=== PATIENT | female | born 1940 | race Asian ===

== ENCOUNTER 2016-11-24 10:15 | Emergency (ER) | payer OTHER, MEDICARE ==
[~2016-11-24] VITALS: Ht 142.2 cm; Wt 44.5 kg
[~2016-11-24 10:15] MED LIST: AMBIEN5 MG PO; ATIVAN0.5 MG PO; CALCIUM 600 +1 EAC5 PO; CALCIUM CARB1 TABLET PO; CARBIDOPA/LEVO1 EACH PO; CELECOXIB200 MG PO; CENTRUM SILVER1 EAC3 PO; CIPRO500 MG PO; COLACE100 MG PO; CYANOCOBALAM1000 MCG PO; DOCUSATE SODIU100 MG PO; FAMOTIDINE20 MG PO; FLEET ENEMA-AD118 ML PR; HYDROCODON-ACE1 EAC7 PO; KLOR-CON SPRIN10 MEQ PO; LEVOFLOXACIN500 MG PO; LISINOPRIL5 MG PO; LORCET PLUS 7.1 EACH PO; LOVENOX40 MG/0.4 SC; METFORMIN HCL500 MG PO; METRONIDAZOLE500 MG PO; MILK OF MAGNESI10 ML PO; MIRALAX17 GM PO; MIRALAX255 GM PO; ONDANSETRON ODT4 MG PO; PRAVASTATIN SOD20 MG PO; SENOKOT,SENN1 TABLET PO; THERAGRAN1 TABLET PO; TYLENOL EXTRA500 MG PO; ULTRAM50 MG PO; VITAMIN A8000 UNIT PO; VITAMIN D1000 UNIT PO
[2016-11-24 11:27] LABS: EOSINOPHIL (%) 1.3 % (0-5); EOSINOPHIL COUNT 0.1 K/uL (0-0.3); HEMATOCRIT 37.8 % (36.0-46.0); IMMATURE GRANULOCYTE (%) 0.3 % (0.0-0.7); IMMATURE GRANULOCYTE COUNT 0.2 K/uL; LYMPHOCYTE COUNT 1.7 K/uL (1.0-2.8); MCH 32.8 PG (29.0-34.0); MCHC 35.2 G/DL (30.0-36.0); MCV 93.1 FL (83-99); MEAN PLAT.VOLUME 8.1 uM^3 (9.5-12.4); MONOCYTE COUNT 0.4 K/uL (0-0.8); NEUTROPHIL (%) 71.1 % (45-76); NEUTROPHIL COUNT 5.5 K/uL (1.8-6.4); PLATELET COUNT 262 K/uL (156-360); RBC DIS.WIDTH-CV 12.3 % (11.8-14.6); RBC DIS.WIDTH-SD 40.9 % (39-53); RED BLOOD COUNT 4.06 M/uL (3.80-5.20); WHITE BLOOD COUNT 7.7 K/uL (4.1-10.2)
[2016-11-24 11:36] LABS: PROTHROMBIN TIME 10.3 (9.2-11.2)
[2016-11-24 11:38] LABS: CHLORIDE 97 mEq/L (99-109); POTASSIUM 5.2 mEq/L (3.7-5.4); SODIUM 130 mEq/L (136-147)
[2016-11-24 11:40] LABS: GLUCOSE 115 mg/dL (70-99)
[2016-11-24 11:41] LABS: ANION GAP 12 MEQ/L (2-14)
[2016-11-24 11:42] LABS: TOTAL BILIRUBIN 0.3 mg/dL (0.0-1.0)
[2016-11-24 11:43] LABS: ALKALINE PHOSPHATASE 59 IU/L (3-129)
[2016-11-24 11:44] LABS: GFR ESTIMATE (CALCULATED) > 59 mL/min/
[2016-11-24 11:45] LABS: UREA NITROGEN (BUN) 27 mg/dL (9-23)
[2016-11-24 11:54] LABS: ADD MIUA? YES; BILIRUBIN SMALL; BLOOD NEGATIVE; COLOR YELLOW ((YELLOW)); GLUCOSE (STRIP) NEGATIVE; KETONES TRACE; LEUKOCYTES LARGE; NITRITE NEGATIVE; PH, URINE 5.5 (5-8); PROTEIN (STRIP) TRACE; SPECIFIC GRAVITY 1.022 (1.000-1.030); UROBILINOGEN 0.2 MG/DL (0.2-1.0)
[2016-11-24 12:55] LABS: EPITHELIAL CELLS NONE SEEN /HPF; MUCUS NONE SEEN /LPF; RED BLOOD CELLS 0-5 /HPF (0-5); UCUL ADDED? YES; WHITE BLOOD CELLS TNTC /HPF (0-5)
[2016-11-24 12:56] LABS: BACTERIA 2+ /HPF; CASTS NONE SEEN /LPF; CRYSTALS NONE SEEN
[2016-11-24] MEDS ORDERED: LEVAQUIN500 MG PO (13:08)
[2016-11-24 13:14] VITALS: BP 148/90
== END 2016-11-24 13:27 | disposition home or self-care (01) ==
LOC: EME 10:15
PROVIDERS: Emergency Medicine
DX: N39.0 Urinary tract infection, site not specified (principal); E11.9 Type 2 diabetes mellitus without complications; E78.5 Hyperlipidemia, unspecified; Z79.4 Long term (current) use of insulin; Z87.891 Personal history of nicotine dependence; Z87.440 Personal history of urinary (tract) infections
CPT/HCPCS: 71010; 80053; 81003; 85025; 85610; 87077; 87086; 87186; 93005; 99281; 99284

== ENCOUNTER 2017-03-11 20:17 | Emergency (ER) | payer OTHER, MEDICARE ==
[~2017-03-11] VITALS: Ht 147.3 cm; Wt 44.5 kg
[~2017-03-11 20:17] MED LIST changes: +LEVAQUIN500 MG PO
[2017-03-11 21:35] LABS: ADD MIUA? NO; BILIRUBIN NEGATIVE; BLOOD NEGATIVE; COLOR YELLOW ((YELLOW)); GLUCOSE (STRIP) NEGATIVE; KETONES 5; LEUKOCYTES NEGATIVE; NITRITE NEGATIVE; PROTEIN (STRIP) NEGATIVE; SPECIFIC GRAVITY 1.013 (1.000-1.030); UCUL ADDED? NO; UROBILINOGEN 0.2 MG/DL (0.2-1.0)
[2017-03-11 21:57] LABS: HEMATOCRIT 39.4 % (36.0-46.0); MCH 32.8 PG (29.0-34.0); MCV 96.6 FL (83-99); MEAN PLAT.VOLUME 8.3 uM^3 (9.5-12.4); PLATELET COUNT 285 K/uL (156-360); RBC DIS.WIDTH-CV 11.9 % (11.8-14.6); RED BLOOD COUNT 4.08 M/uL (3.80-5.20); WHITE BLOOD COUNT 7.5 K/uL (4.1-10.2)
[2017-03-11 22:13] LABS: CHLORIDE 97 mEq/L (99-109); POTASSIUM 4.3 mEq/L (3.7-5.4); SODIUM 131 mEq/L (136-147)
[2017-03-11 22:15] LABS: GLUCOSE 126 mg/dL (70-99)
[2017-03-11 22:17] LABS: ANION GAP 12 MEQ/L (2-14)
[2017-03-11 22:19] LABS: GFR ESTIMATE (CALCULATED) > 59 mL/min/
[2017-03-11 22:20] LABS: UREA NITROGEN (BUN) 14 mg/dL (9-23)
[2017-03-11 23:32] LABS: TOTAL BILIRUBIN 0.5 mg/dL (0.0-1.0)
[2017-03-11 23:33] LABS: ALKALINE PHOSPHATASE 68 IU/L (3-129)
[2017-03-11 23:36] LABS: DIRECT BILIRUBIN 0.2 mg/dL (0.0-0.3)
[2017-03-11 23:37] LABS: LIPASE 19 U/L (1.0-51.0)
[2017-03-12 01:45] VITALS: BP 164/97
== END 2017-03-12 01:45 | disposition home or self-care (01) ==
LOC: EME 20:17
PROVIDERS: Physician Assistant Medical
DX: R31.9 Hematuria, unspecified (principal); R41.82 Altered mental status, unspecified; E11.9 Type 2 diabetes mellitus without complications; E78.5 Hyperlipidemia, unspecified; K21.9 Gastro-esophageal reflux disease without esophagitis; G20 Parkinson's disease; I10 Essential (primary) hypertension; Z87.891 Personal history of nicotine dependence; R06.02 Shortness of breath
CPT/HCPCS: 70450; 71020; 74176; 80048; 80076; 81003; 83605; 83690; 85027; 87040; 99281; 99285; J7030

== ENCOUNTER 2017-05-15 17:52 | Inpatient (IN) | payer OTHER, MEDICARE ==
[~2017-05-15] VITALS: Ht 137.2 cm; Wt 44.4 kg
[~2017-05-15 17:52] MED LIST changes: -METFORMIN HCL500 MG PO
[2017-05-15 18:41] LABS: HEMATOCRIT 37.2 % (36.0-46.0); MCHC 34.1 G/DL (30.0-36.0); MCV 93.7 FL (83-99); MEAN PLAT.VOLUME 8.1 uM^3 (9.5-12.4); PLATELET COUNT 284 K/uL (156-360); RBC DIS.WIDTH-CV 12.2 % (11.8-14.6); RBC DIS.WIDTH-SD 42.5 % (39-53); RED BLOOD COUNT 3.97 M/uL (3.80-5.20)
[2017-05-15 18:50] LABS: CHLORIDE 98 mEq/L (99-109); POTASSIUM 3.9 mEq/L (3.7-5.4); SODIUM 134 mEq/L (136-147)
[2017-05-15 18:51] LABS: GLUCOSE 187 mg/dL (70-99)
[2017-05-15 18:53] LABS: ANION GAP 14 MEQ/L (2-14)
[2017-05-15 18:55] LABS: GFR ESTIMATE (CALCULATED) > 59 mL/min/
[2017-05-15 18:56] LABS: UREA NITROGEN (BUN) 15 mg/dL (9-23)
[2017-05-15 20:12] LABS: ADD MIUA? NO; BILIRUBIN NEGATIVE; BLOOD NEGATIVE; COLOR YELLOW ((YELLOW)); GLUCOSE (STRIP) >=500; KETONES 5; LEUKOCYTES NEGATIVE; NITRITE NEGATIVE; PROTEIN (STRIP) NEGATIVE; SPECIFIC GRAVITY 1.018 (1.000-1.030)
[2017-05-15 21:07] LABS: TROP-I INTERPRETATION NEGATIVE; TROPONIN-I < 0.01 ng/mL (0.0-0.30)
[2017-05-15] MEDS ORDERED: ELAVIL10 MG PO (23:45)
[2017-05-15] MEDS ORDERED: COZAAR50 MG PO (23:46)
[2017-05-15] MEDS ORDERED: PROBIOTIC1 EAC3 PO (23:49)
[2017-05-15] MEDS ORDERED: PRESERVISION T1 EACH PO (23:49)
[2017-05-15] MEDS ORDERED: FIBER THERAPY500 MG PO (23:51)
[2017-05-15] MEDS ORDERED: CRANBERRY200 MG PO (23:51)
[2017-05-16 00:48] LABS: TOTAL BILIRUBIN 0.7 mg/dL (0.0-1.0)
[2017-05-16 00:49] LABS: ALKALINE PHOSPHATASE 185 IU/L (3-129)
[2017-05-16 00:52] LABS: DIRECT BILIRUBIN 0.4 mg/dL (0.0-0.3)
[2017-05-16 03:38] VITALS: BP 186/86
[2017-05-16 07:00] LABS: HEMATOCRIT 34.4 % (36.0-46.0); MCH 31.7 PG (29.0-34.0); MCHC 33.1 G/DL (30.0-36.0); MCV 95.6 FL (83-99); MEAN PLAT.VOLUME 8.4 uM^3 (9.5-12.4); PLATELET COUNT 275 K/uL (156-360); RBC DIS.WIDTH-CV 12.6 % (11.8-14.6); RBC DIS.WIDTH-SD 44.5 % (39-53); WHITE BLOOD COUNT 5.8 K/uL (4.1-10.2)
[2017-05-16 07:27] LABS: ALKALINE PHOSPHATASE 132 IU/L (3-129); ANION GAP 10 MEQ/L (2-14); CHLORIDE 102 MEQ/L (99-109); GFR ESTIMATE (CALCULATED) > 59 mL/min/; GLUCOSE 148 mg/dL (70-99); POTASSIUM 3.6 MEQ/L (3.7-5.4); SAMPLE HEMOLYSIS CHECK 0; SAMPLE ICTERIC CHECK 0; SAMPLE LIPEMIA CHECK 0; SODIUM 136 MEQ/L (136-147); TOTAL BILIRUBIN 0.5 MG/DL (0.0-1.0); UREA NITROGEN (BUN) 14 mg/dL (9-23)
[2017-05-16 07:52] VITALS: BP 129/64
[2017-05-16 08:15] LABS: Estimated Average Glucose 166 mg/dL (70-123); HEMOGLOBIN A1c (GLYCOHEMOGLOB) 7.4 % HGB (Below 5.7)
[2017-05-16 13:11] VITALS: BP 176/87
[2017-05-16 16:00] VITALS: BP 183/89
[2017-05-16 20:11] VITALS: BP 173/81
[2017-05-16 23:31] VITALS: BP 159/79
[2017-05-17 04:28] VITALS: BP 155/71
[2017-05-17 06:09] LABS: HEMATOCRIT 34.3 % (36.0-46.0); MCH 32.5 PG (29.0-34.0); MCHC 34.1 G/DL (30.0-36.0); MCV 95.3 FL (83-99); MEAN PLAT.VOLUME 8.4 uM^3 (9.5-12.4); PLATELET COUNT 269 K/uL (156-360); RBC DIS.WIDTH-CV 12.4 % (11.8-14.6); RBC DIS.WIDTH-SD 43.5 % (39-53); WHITE BLOOD COUNT 7.3 K/uL (4.1-10.2)
[2017-05-17 06:50] LABS: ALKALINE PHOSPHATASE 117 IU/L (3-129); ANION GAP 11 MEQ/L (2-14); CHLORIDE 102 MEQ/L (99-109); GFR ESTIMATE (CALCULATED) > 59 mL/min/; GLUCOSE 143 mg/dL (70-99); POTASSIUM 3.3 MEQ/L (3.7-5.4); SAMPLE HEMOLYSIS CHECK 0; SAMPLE ICTERIC CHECK 0; SAMPLE LIPEMIA CHECK 0; SODIUM 136 MEQ/L (136-147); TOTAL BILIRUBIN 0.4 MG/DL (0.0-1.0); UREA NITROGEN (BUN) 7 mg/dL (9-23)
[2017-05-17 12:15] VITALS: BP 115/61
[2017-05-17 16:31] VITALS: BP 115/61
[2017-05-17 19:50] VITALS: BP 161/76
[2017-05-17 23:50] VITALS: BP 166/77
[2017-05-18 04:35] VITALS: BP 132/73
[2017-05-18 07:16] LABS: PROTHROMBIN TIME 10.5 SEC (10.2-12.9)
[2017-05-18 07:20] LABS: ANION GAP 9 MEQ/L (2-14); CHLORIDE 102 MEQ/L (99-109); GFR ESTIMATE (CALCULATED) > 59 mL/min/; GLOBULINS 2.5 G/DL (2.3-3.5); GLUCOSE 165 mg/dL (70-99); POTASSIUM 3.5 MEQ/L (3.7-5.4); SAMPLE HEMOLYSIS CHECK 0; SAMPLE ICTERIC CHECK 0; SAMPLE LIPEMIA CHECK 0; SODIUM 136 MEQ/L (136-147); UREA NITROGEN (BUN) 6 mg/dL (9-23)
[2017-05-18 07:58] VITALS: BP 161/77
[2017-05-18 10:31] VITALS: BP 169/77
[2017-05-18 11:50] LABS: POINT-OF-CARE METER ID UU13113725
[2017-05-18 16:18] VITALS: BP 165/89
[2017-05-18 19:33] VITALS: BP 131/67
[2017-05-18 21:44] LABS: POINT-OF-CARE METER ID UU13113725
[2017-05-19 00:48] VITALS: BP 120/69
[2017-05-19 04:17] VITALS: BP 133/71
[2017-05-19 06:06] LABS: POINT-OF-CARE METER ID UU13113725
[2017-05-19 08:00] VITALS: BP 168/79
[2017-05-19 11:52] LABS: C DIFF TOXIN POSITIVE (NEGATIVE)
[2017-05-19 11:54] LABS: ALBUMIN 3.91 G/DL (3.6-4.9); ALPHA-1 GLOBULIN 0.18 G/DL (0.15-0.40); ALPHA-1 PERCENT 2.9 % (2.1-5.5); ALPHA-2 GLOBULIN 0.72 G/DL (0.45-0.85); ALPHA-2 PERCENT 11.5 % (6.2-11.6); BETA PERCENT 8.7 % (8.9-15.8); GAMMA PERCENT 14.9 % (8.6-18.6); SERUM GEL NO. 91-7
[2017-05-19 11:54] LABS: PROBE CHECK PASS
[2017-05-19 16:40] LABS: POINT-OF-CARE METER ID UU13113725
[2017-05-19 17:03] VITALS: BP 193/97
[2017-05-19 21:27] LABS: POINT-OF-CARE METER ID UU13113725
[2017-05-19 23:31] VITALS: BP 135/64
[2017-05-20 04:42] LABS: POINT-OF-CARE METER ID UU13113725
[2017-05-20 06:02] LABS: HEMATOCRIT 33.8 % (36.0-46.0); MCH 31.8 PG (29.0-34.0); MCHC 33.7 G/DL (30.0-36.0); MCV 94.2 FL (83-99); MEAN PLAT.VOLUME 8.4 uM^3 (9.5-12.4); PLATELET COUNT 332 K/uL (156-360); RBC DIS.WIDTH-SD 41.8 % (39-53); RED BLOOD COUNT 3.59 M/uL (3.80-5.20); WHITE BLOOD COUNT 6.3 K/uL (4.1-10.2)
[2017-05-20 06:23] LABS: POINT-OF-CARE METER ID UU13113725
[2017-05-20 06:36] LABS: ANION GAP 9 MEQ/L (2-14); CHLORIDE 99 MEQ/L (99-109); GFR ESTIMATE (CALCULATED) > 59 mL/min/; GLUCOSE 161 mg/dL (70-99); POTASSIUM 4.1 MEQ/L (3.7-5.4); SAMPLE HEMOLYSIS CHECK 0; SAMPLE ICTERIC CHECK 0; SAMPLE LIPEMIA CHECK 0; SODIUM 134 MEQ/L (136-147); UREA NITROGEN (BUN) 12 mg/dL (9-23)
[2017-05-20 07:52] VITALS: BP 137/68
[2017-05-20 11:03] LABS: POINT-OF-CARE METER ID UU13113725
[2017-05-20 16:51] LABS: POINT-OF-CARE METER ID UU13113725
[2017-05-20 19:11] VITALS: BP 120/63
[2017-05-20 22:51] VITALS: BP 131/60
[2017-05-21 05:56] LABS: HEMATOCRIT 35.2 % (36.0-46.0); MCH 31.2 PG (29.0-34.0); MCHC 33.2 G/DL (30.0-36.0); MCV 93.9 FL (83-99); MEAN PLAT.VOLUME 8.3 uM^3 (9.5-12.4); PLATELET COUNT 344 K/uL (156-360); RBC DIS.WIDTH-CV 12.1 % (11.8-14.6); RBC DIS.WIDTH-SD 41.7 % (39-53); RED BLOOD COUNT 3.75 M/uL (3.80-5.20); WHITE BLOOD COUNT 7.3 K/uL (4.1-10.2)
[2017-05-21 06:30] LABS: ALKALINE PHOSPHATASE 140 IU/L (3-129); ANION GAP 9 MEQ/L (2-14); CHLORIDE 96 MEQ/L (99-109); DIRECT BILIRUBIN 0.1 mg/dL (0.0-0.3); GFR ESTIMATE (CALCULATED) > 59 mL/min/; GLUCOSE 215 mg/dL (70-99); SAMPLE HEMOLYSIS CHECK 0; SAMPLE ICTERIC CHECK 0; SAMPLE LIPEMIA CHECK 0; SODIUM 131 MEQ/L (136-147); UREA NITROGEN (BUN) 19 mg/dL (9-23)
[2017-05-21 06:31] LABS: TOTAL BILIRUBIN 0.5 MG/DL (0.0-1.0)
[2017-05-21 08:19] VITALS: BP 108/58
[2017-05-21 11:52] LABS: POINT-OF-CARE METER ID UU13113725
[2017-05-21] MEDS ORDERED: MYCOSTATIN 100,60 ML PO (15:06)
[2017-05-21] MEDS ORDERED: KRISTALOSE10 GM PO (15:06)
[2017-05-21] MEDS ORDERED: XIFAXAN550 MG PO (15:06)
[2017-05-21] MEDS ORDERED: METRONIDAZOLE500 MG PO (15:06)
[2017-06-06] MEDS ORDERED: XIFAXAN550 MG PO (12:55)
[2017-06-07] MEDS ORDERED: LOPRESSOR25 MG PO (12:35)
== END 2017-05-21 17:00 | disposition home health service (06) | DRG 872 ==
LOC: EME 17:52 → EDOF 05-16 00:01 → 5EAST 05-16 00:01 → ENRESERV 05-16 01:55 → 5EAST 05-16 01:58
PROVIDERS: Emergency Medicine; Hospitalist; Internal Medicine; Specialist
DX: R65.10 Systemic inflammatory response syndrome (SIRS) of non-infectious origin without acute organ dysfunction (principal); R50.9 Fever, unspecified; A04.7 Enterocolitis due to Clostridium difficile; N39.0 Urinary tract infection, site not specified; B37.0 Candidal stomatitis; E72.20 Disorder of urea cycle metabolism, unspecified; K80.10 Calculus of gallbladder with chronic cholecystitis without obstruction; K83.8 Other specified diseases of biliary tract; E87.1 Hypo-osmolality and hyponatremia; E86.0 Dehydration; E87.6 Hypokalemia; D64.9 Anemia, unspecified; K21.9 Gastro-esophageal reflux disease without esophagitis; I10 Essential (primary) hypertension; E11.9 Type 2 diabetes mellitus without complications; E78.00 Pure hypercholesterolemia, unspecified; E78.5 Hyperlipidemia, unspecified; G20 Parkinson's disease; Z87.891 Personal history of nicotine dependence
CPT/HCPCS: 70450; 71010; 71020; 74177; 74181; 76705; 78227; 80048; 80053; 80076; 81003; 82140; 82248; 82390; 82607; 82728; 82746; 82948; 83036; 83605; 84165; 84466; 84484; 85027; 85610; 87040; 87493; 93005; 97530 GO; 97530 GP; 99281; 99285; A9537; J0696; J1644; J1815; J2270; J3480; J7030; J7040; J7050

== ENCOUNTER 2017-05-23 12:22 | Inpatient (IN) | payer OTHER, MEDICARE ==
[~2017-05-23] VITALS: Ht 139.7 cm; Wt 45.9 kg
[~2017-05-23 12:22] MED LIST changes: +COZAAR50 MG PO; +CRANBERRY200 MG PO; +ELAVIL10 MG PO; +FIBER THERAPY500 MG PO; +KRISTALOSE10 GM PO; +MYCOSTATIN 100,60 ML PO; +PRESERVISION T1 EACH PO; +PROBIOTIC1 EAC3 PO; +XIFAXAN550 MG PO
[2017-05-23 14:36] LABS: EOSINOPHIL (%) 1.1 % (0-5); EOSINOPHIL COUNT 0.1 K/uL (0-0.3); HEMATOCRIT 37.1 % (36.0-46.0); IMMATURE GRANULOCYTE (%) 0.6 % (0.0-0.7); IMMATURE GRANULOCYTE COUNT 0.1 K/uL; INSTRUMENT ABS NEUTROPHIL CT 8.1 K/uL; MCH 32.1 PG (29.0-34.0); MCV 94.6 FL (83-99); MEAN PLAT.VOLUME 8.3 uM^3 (9.5-12.4); MONOCYTE (%) 7.1 % (3-12); MONOCYTE COUNT 0.7 K/uL (0-0.8); NEUTROPHIL (%) 81.2 % (45-76); NEUTROPHIL COUNT 8.1 K/uL (1.8-6.4); PLATELET COUNT 369 K/uL (156-360); RBC DIS.WIDTH-CV 12.7 % (11.8-14.6); RBC DIS.WIDTH-SD 43.8 % (39-53); RED BLOOD COUNT 3.92 M/uL (3.80-5.20)
[2017-05-23 14:54] LABS: CHLORIDE 99 mEq/L (99-109); POTASSIUM 3.6 mEq/L (3.7-5.4); SODIUM 135 mEq/L (136-147)
[2017-05-23 14:56] LABS: GLUCOSE 130 mg/dL (70-99)
[2017-05-23 14:58] LABS: ANION GAP 12 MEQ/L (2-14); TOTAL BILIRUBIN 0.8 mg/dL (0.0-1.0)
[2017-05-23 15:00] LABS: ALKALINE PHOSPHATASE 220 IU/L (3-129); GFR ESTIMATE (CALCULATED) > 59 mL/min/
[2017-05-23 15:01] LABS: UREA NITROGEN (BUN) 23 mg/dL (9-23)
[2017-05-23 15:02] LABS: DIRECT BILIRUBIN 0.4 mg/dL (0.0-0.3)
[2017-05-23] MEDS ORDERED: METFORMIN HCL500 MG PO (22:17)
[2017-05-23] MEDS ORDERED: GLUCOPHAGE500 MG PO (22:18)
[2017-05-23] MEDS ORDERED: PRAVACHOL20 MG PO (22:19)
[2017-05-23] MEDS ORDERED: SINEMET 25-1001 EACH PO (22:19)
[2017-05-23] MEDS ORDERED: OYSTER SHELL C1 EA16 PO (22:20)
[2017-05-23] MEDS ORDERED: TYLENOL EXTRA500 MG PO (22:21)
[2017-05-23] MEDS ORDERED: MIRALAX255 GM PO (22:22)
[2017-05-23] MEDS ORDERED: AMITRIPTYLINE H10 MG PO (22:23)
[2017-05-23] MEDS ORDERED: COZAAR50 MG PO (22:23)
[2017-05-23] MEDS ORDERED: PRESERVISION T1 EACH PO (22:24)
[2017-05-23] MEDS ORDERED: CRANBERRY 4001 EAC1 PO (22:24)
[2017-05-23] MEDS ORDERED: XIFAXAN550 MG PO (22:25)
[2017-05-23] MEDS ORDERED: MYCOSTATIN 100,60 ML PO (22:26)
[2017-05-23] MEDS ORDERED: AMMONIUM LACTA224 GM TP (22:27)
[2017-05-23] MEDS ORDERED: FLAGYL500 MG PO (22:27)
[2017-05-23] MEDS ORDERED: KRISTALOSE10 GM PO (22:28)
[2017-05-24] VITALS (7 sets, daily range): BP systolic 108–140; BP diastolic 56–70
[2017-05-24 06:45] LABS: POINT-OF-CARE USER ID 608261316
[2017-05-24 06:46] LABS: HEMATOCRIT 33.6 % (36.0-46.0); MCHC 33.6 G/DL (30.0-36.0); MCV 95.2 FL (83-99); MEAN PLAT.VOLUME 8.3 uM^3 (9.5-12.4); PLATELET COUNT 377 K/uL (156-360); RBC DIS.WIDTH-CV 13.1 % (11.8-14.6); RBC DIS.WIDTH-SD 45.1 % (39-53); RED BLOOD COUNT 3.53 M/uL (3.80-5.20); WHITE BLOOD COUNT 6.1 K/uL (4.1-10.2)
[2017-05-24 07:25] LABS: ALKALINE PHOSPHATASE 144 IU/L (3-129); ANION GAP 9 MEQ/L (2-14); CHLORIDE 98 MEQ/L (99-109); GFR ESTIMATE (CALCULATED) > 59 mL/min/; GLUCOSE 125 mg/dL (70-99); POTASSIUM 3.6 MEQ/L (3.7-5.4); SAMPLE HEMOLYSIS CHECK 0; SAMPLE ICTERIC CHECK 0; SAMPLE LIPEMIA CHECK 0; SODIUM 134 MEQ/L (136-147); TOTAL BILIRUBIN 0.6 MG/DL (0.0-1.0); UREA NITROGEN (BUN) 22 mg/dL (9-23)
[2017-05-25 04:14] VITALS: BP 136/68
[2017-05-25 07:08] LABS: BASOPHIL COUNT 0.1 K/uL (0-0.1); EOSINOPHIL COUNT 0.2 K/uL (0-0.3); IMMATURE GRANULOCYTE (%) 0.7 % (0.0-0.7); INSTRUMENT ABS NEUTROPHIL CT 3.2 K/uL; LYMPHOCYTE COUNT 1.9 K/uL (1.0-2.8); MCH 32.8 PG (29.0-34.0); MCHC 33.9 G/DL (30.0-36.0); MCV 96.8 FL (83-99); MEAN PLAT.VOLUME 8.4 uM^3 (9.5-12.4); MONOCYTE (%) 11.3 % (3-12); MONOCYTE COUNT 0.7 K/uL (0-0.8); NEUTROPHIL (%) 52.9 % (45-76); NEUTROPHIL COUNT 3.2 K/uL (1.8-6.4); PLATELET COUNT 366 K/uL (156-360); RBC DIS.WIDTH-CV 13.2 % (11.8-14.6); RBC DIS.WIDTH-SD 46.4 % (39-53); RED BLOOD COUNT 3.41 M/uL (3.80-5.20); WHITE BLOOD COUNT 6.1 K/uL (4.1-10.2)
[2017-05-25 07:24] VITALS: BP 136/94
[2017-05-25 07:34] LABS: ANION GAP 8 MEQ/L (2-14); CHLORIDE 101 MEQ/L (99-109); DIRECT BILIRUBIN 0.1 mg/dL (0.0-0.3); GFR ESTIMATE (CALCULATED) > 59 mL/min/; LIPASE 23 U/L (1.0-51.0); MAGNESIUM 1.6 mg/dl (1.3-2.7); POTASSIUM 3.8 MEQ/L (3.7-5.4); SAMPLE HEMOLYSIS CHECK 0; SAMPLE ICTERIC CHECK 0; SAMPLE LIPEMIA CHECK 0; SODIUM 133 MEQ/L (136-147); TOTAL BILIRUBIN 0.5 MG/DL (0.0-1.0); UREA NITROGEN (BUN) 13 mg/dL (9-23)
[2017-05-25 07:35] LABS: ALKALINE PHOSPHATASE 208 IU/L (3-129); GLUCOSE 191 mg/dL (70-99)
[2017-05-25 08:44] LABS: ADD MIUA? YES; BILIRUBIN NEGATIVE; BLOOD SMALL; COLOR YELLOW ((YELLOW)); GLUCOSE (STRIP) 50; KETONES NEGATIVE; LEUKOCYTES MODERATE; NITRITE NEGATIVE; PROTEIN (STRIP) NEGATIVE; SPECIFIC GRAVITY 1.012 (1.000-1.030); UROBILINOGEN 0.2 MG/DL (0.2-1.0)
[2017-05-25 08:49] LABS: BACTERIA 3+ /HPF; EPITHELIAL CELLS NONE SEEN /HPF; MUCUS TRACE /LPF; UCUL ADDED? YES; WHITE BLOOD CELLS 20-30 /HPF (0-5)
[2017-05-25 15:50] VITALS: BP 159/79
[2017-05-25 23:40] VITALS: BP 176/85
[2017-05-26 01:40] VITALS: BP 108/70
[2017-05-26 08:09] VITALS: BP 130/70
[2017-05-26 18:00] VITALS: BP 148/80
[2017-05-26 20:43] VITALS: BP 126/60
[2017-05-26 23:40] VITALS: BP 140/66
[2017-05-27 03:01] VITALS: BP 110/57
[2017-05-27 07:25] VITALS: BP 135/66
== END 2017-05-27 12:48 | disposition home health service (06) | DRG 70 ==
LOC: EME 12:22 → EDOF 21:25 → 5EAST 21:25 → ENRESERV 21:30 → 5EAST 05-24 00:47 → ENPENDDIS 05-27 → 5EAST 05-27 12:48
PROVIDERS: Internal Medicine; Physician Assistant
DX: G93.40 Encephalopathy, unspecified (principal); A04.7 Enterocolitis due to Clostridium difficile; K83.1 Obstruction of bile duct; E72.20 Disorder of urea cycle metabolism, unspecified; G20 Parkinson's disease; D64.9 Anemia, unspecified; E11.9 Type 2 diabetes mellitus without complications; I10 Essential (primary) hypertension; E78.00 Pure hypercholesterolemia, unspecified; E78.5 Hyperlipidemia, unspecified; E87.6 Hypokalemia; F02.80 Dementia in other diseases classified elsewhere, unspecified severity, without behavioral disturbance, psychotic disturbance, mood disturbance, and anxiety; T50.995A Adverse effect of other drugs, medicaments and biological substances, initial encounter; K21.9 Gastro-esophageal reflux disease without esophagitis; K80.21 Calculus of gallbladder without cholecystitis with obstruction; R13.10 Dysphagia, unspecified; R62.7 Adult failure to thrive; Z79.84 Long term (current) use of oral hypoglycemic drugs; Z79.899 Other long term (current) drug therapy; R16.0 Hepatomegaly, not elsewhere classified; R26.81 Unsteadiness on feet; R55 Syncope and collapse
CPT/HCPCS: 80048; 80053; 80076; 81003; 82140; 82948; 83690; 83735; 84100; 85025; 85027; 87086; 92610 GN; 99281; 99284; J0360; J1815; J7030

== ENCOUNTER → 2017-06-07 | Outpatient (CLI) | payer OTHER, MEDICARE ==
[~2017-06-07] VITALS: Ht 147.3 cm; Wt 45.0 kg
[~2017-06-07] MED LIST changes: +AMITRIPTYLINE H10 MG PO; +AMMONIUM LACTA224 GM TP; +CRANBERRY 4001 EAC1 PO; +FLAGYL500 MG PO; +GLUCOPHAGE500 MG PO; +LOPRESSOR25 MG PO; +METFORMIN HCL500 MG PO; +OYSTER SHELL C1 EA16 PO; +PRAVACHOL20 MG PO; +SINEMET 25-1001 EACH PO
[2017-06-07 11:17] LABS: HEMATOCRIT 37.8 % (36.0-46.0); MCH 32.3 PG (29.0-34.0); MCHC 33.3 G/DL (30.0-36.0); MCV 96.9 FL (83-99); MEAN PLAT.VOLUME 8.3 uM^3 (9.5-12.4); PLATELET COUNT 411 K/uL (156-360); RBC DIS.WIDTH-CV 13.4 % (11.8-14.6); RBC DIS.WIDTH-SD 47.8 % (39-53); WHITE BLOOD COUNT 6.2 K/uL (4.1-10.2)
[2017-06-07 11:52] LABS: ANION GAP 9 MEQ/L (2-14); CHLORIDE 98 MEQ/L (99-109); GFR ESTIMATE (CALCULATED) > 59 mL/min/; GLUCOSE 170 mg/dL (70-99); POTASSIUM 3.9 MEQ/L (3.7-5.4); SAMPLE HEMOLYSIS CHECK 0; SAMPLE ICTERIC CHECK 0; SAMPLE LIPEMIA CHECK 0; SODIUM 136 MEQ/L (136-147); UREA NITROGEN (BUN) 13 mg/dL (9-23)
[2017-06-07 12:09] LABS: POINT-OF-CARE METER ID UU14107333
[2017-06-07 14:52] LABS: POINT-OF-CARE METER ID UU13113819
== END | disposition home or self-care (01) ==
LOC: AMB 10:45
PROVIDERS: Internal Medicine Gastroenterology
DX: K80.21 Calculus of gallbladder without cholecystitis with obstruction (principal); I10 Essential (primary) hypertension; K21.9 Gastro-esophageal reflux disease without esophagitis; G20 Parkinson's disease; F02.80 Dementia in other diseases classified elsewhere, unspecified severity, without behavioral disturbance, psychotic disturbance, mood disturbance, and anxiety; E11.9 Type 2 diabetes mellitus without complications; Z79.84 Long term (current) use of oral hypoglycemic drugs
CPT/HCPCS: 74330; 80048; 82948; 85027; 86301 90; 87081; 88108; 88305; C1757; C1769; C2625; J0330; J1100; J2405; J3010

== ENCOUNTER 2017-06-15 11:45 | Emergency (ER) | payer OTHER, MEDICARE ==
[~2017-06-15] VITALS: Ht 142.2 cm; Wt 43.0 kg
[2017-06-15 14:41] LABS: BASOPHIL COUNT 0.1 K/uL (0-0.1); EOSINOPHIL (%) 2.7 % (0-5); EOSINOPHIL COUNT 0.2 K/uL (0-0.3); HEMATOCRIT 38.3 % (36.0-46.0); IMMATURE GRANULOCYTE (%) 0.5 % (0.0-0.7); INSTRUMENT ABS NEUTROPHIL CT 4.5 K/uL; LYMPHOCYTE COUNT 3.5 K/uL (1.0-2.8); MCH 32.4 PG (29.0-34.0); MCHC 33.9 G/DL (30.0-36.0); MCV 95.5 FL (83-99); MEAN PLAT.VOLUME 8.2 uM^3 (9.5-12.4); MONOCYTE (%) 6.6 % (3-12); MONOCYTE COUNT 0.6 K/uL (0-0.8); NEUTROPHIL (%) 50.3 % (45-76); NEUTROPHIL COUNT 4.5 K/uL (1.8-6.4); PLATELET COUNT 461 K/uL (156-360); RBC DIS.WIDTH-CV 12.1 % (11.8-14.6); RBC DIS.WIDTH-SD 42.8 % (39-53); RED BLOOD COUNT 4.01 M/uL (3.80-5.20); WHITE BLOOD COUNT 8.9 K/uL (4.1-10.2)
[2017-06-15 15:06] LABS: CHLORIDE 95 mEq/L (99-109); POTASSIUM 4.5 mEq/L (3.7-5.4); SODIUM 130 mEq/L (136-147)
[2017-06-15 15:08] LABS: GLUCOSE 102 mg/dL (70-99)
[2017-06-15 15:09] LABS: ANION GAP 11 MEQ/L (2-14)
[2017-06-15 15:12] LABS: GFR ESTIMATE (CALCULATED) > 59 mL/min/
[2017-06-15 15:13] LABS: UREA NITROGEN (BUN) 15 mg/dL (9-23)
[2017-06-15] MEDS ORDERED: AUGMENTIN500 MG PO (15:35)
[2017-06-15 16:15] VITALS: BP 141/90
== END 2017-06-15 16:33 | disposition home or self-care (01) ==
LOC: EME 11:45
PROVIDERS: Personal Emergency Response Attendant
DX: R06.00 Dyspnea, unspecified (principal); E78.5 Hyperlipidemia, unspecified; I10 Essential (primary) hypertension; E11.9 Type 2 diabetes mellitus without complications; Z79.84 Long term (current) use of oral hypoglycemic drugs; Z87.891 Personal history of nicotine dependence; G20 Parkinson's disease; K21.9 Gastro-esophageal reflux disease without esophagitis; F03.90 Unspecified dementia, unspecified severity, without behavioral disturbance, psychotic disturbance, mood disturbance, and anxiety; Z87.440 Personal history of urinary (tract) infections; Z86.19 Personal history of other infectious and parasitic diseases
CPT/HCPCS: 71020; 80048; 83880; 85025; 93005; 99281; 99284

== ENCOUNTER → 2017-07-13 | Outpatient (CLI) | payer OTHER, MEDICARE ==
[~2017-07-13] VITALS: Ht 147.3 cm; Wt 43.1 kg
[~2017-07-13] MED LIST changes: +AUGMENTIN500 MG PO; +CLARITIN,ALAVAR10 MG PO; +CRANBERRY500 M3 PO; +POTASSIUM-9999 MG PO; +TRAZODONE HCL50 MG PO
[2017-07-13 11:09] LABS: POINT-OF-CARE METER ID UU14107333
[2017-07-13 15:43] LABS: POINT-OF-CARE METER ID UU13113819
== END | disposition home or self-care (01) ==
LOC: AMB 08:00
PROVIDERS: Internal Medicine Gastroenterology
PROC: 0FB88ZX Excision of Cystic Duct, Via Natural or Artificial Opening Endoscopic, Diagnostic (ICD-10-PCS; principal; 2017-07-13)
PROC: 0FPB8DZ Removal of Intraluminal Device from Hepatobiliary Duct, Via Natural or Artificial Opening Endoscopic (ICD-10-PCS; principal; 2017-07-13)
PROC: 0F5 Hepatobiliary System and Pancreas, Destruction (ICD-10-PCS; principal; 2017-07-13)
PROC: 0FC88ZZ Extirpation of Matter from Cystic Duct, Via Natural or Artificial Opening Endoscopic (ICD-10-PCS; principal; 2017-07-13)
DX: K83.1 Obstruction of bile duct (principal); D13.5 Benign neoplasm of extrahepatic bile ducts; E11.9 Type 2 diabetes mellitus without complications; E78.5 Hyperlipidemia, unspecified; I10 Essential (primary) hypertension; G21.9 Secondary parkinsonism, unspecified; Z79.84 Long term (current) use of oral hypoglycemic drugs
CPT/HCPCS: 74328; 82948; 87081; 88173; 88305; C1757; C1769; J0330; J0744; J1100; J2250; J2405; J3010

== ENCOUNTER 2017-09-11 09:13 | Inpatient (IN) | payer OTHER, MEDICARE ==
[~2017-09-11] VITALS: Ht 152.4 cm; Wt 45.3 kg
[~2017-09-11 09:13] MED LIST changes: -LOPRESSOR25 MG PO; +METOPROLOL SUCC25 MG PO
[2017-09-11 10:04] LABS: BASOPHIL COUNT 0.1 K/uL (0-0.1); EOSINOPHIL (%) 0.4 % (0-5); EOSINOPHIL COUNT 0.1 K/uL (0-0.3); HEMATOCRIT 38.3 % (36.0-46.0); IMMATURE GRANULOCYTE (%) 0.7 % (0.0-0.7); IMMATURE GRANULOCYTE COUNT 0.1 K/uL; INSTRUMENT ABS NEUTROPHIL CT 9.7 K/uL; LYMPHOCYTE COUNT 1.6 K/uL (1.0-2.8); MCHC 34.5 G/DL (30.0-36.0); MCV 92.7 FL (83-99); MEAN PLAT.VOLUME 8.1 uM^3 (9.5-12.4); MONOCYTE COUNT 0.5 K/uL (0-0.8); NEUTROPHIL (%) 81.1 % (45-76); NEUTROPHIL COUNT 9.7 K/uL (1.8-6.4); PLATELET COUNT 374 K/uL (156-360); RBC DIS.WIDTH-CV 11.7 % (11.8-14.6); RBC DIS.WIDTH-SD 39.5 % (39-53); RED BLOOD COUNT 4.13 M/uL (3.80-5.20)
[2017-09-11 10:13] LABS: CHLORIDE 96 mEq/L (99-109); POTASSIUM 3.3 mEq/L (3.7-5.4); SODIUM 130 mEq/L (136-147)
[2017-09-11 10:14] LABS: GLUCOSE 191 mg/dL (70-99)
[2017-09-11 10:16] LABS: ANION GAP 10 MEQ/L (2-14)
[2017-09-11 10:18] LABS: GFR ESTIMATE (CALCULATED) > 59 mL/min/
[2017-09-11 10:19] LABS: UREA NITROGEN (BUN) 16 mg/dL (9-23)
[2017-09-11 12:23] LABS: PROTHROMBIN TIME 11.5 SEC (10.2-12.9)
[2017-09-11 12:25] LABS: PTT 32.6 SEC (25-37)
[2017-09-11 12:26] LABS: TROP-I INTERPRETATION NEGATIVE; TROPONIN-I < 0.01 ng/mL (0.0-0.30)
[2017-09-11 12:41] LABS: HDL CHOLESTEROL 46 MG/DL (Desirable>=50); LDL CHOLESTEROL 35 mg/dL (Desirable<100); NON-HDL CHOLESTEROL 56 mg/dL (Desirable<160); TOTAL CHOLESTEROL 102 mg/dL (Desirable<200); TRIGLYCERIDES 105 MG/DL (Normal: <150)
[2017-09-11 13:42] LABS: ADD MIUA? NO; BILIRUBIN NEGATIVE; BLOOD NEGATIVE; COLOR YELLOW ((YELLOW)); GLUCOSE (STRIP) 50; KETONES 20; LEUKOCYTES NEGATIVE; NITRITE NEGATIVE; PROTEIN (STRIP) NEGATIVE; SPECIFIC GRAVITY 1.018 (1.000-1.030); UCUL ADDED? NO; UROBILINOGEN 0.2 MG/DL (0.2-1.0)
[2017-09-11 14:01] LABS: Estimated Average Glucose 160 mg/dL (70-123); HEMOGLOBIN A1c (GLYCOHEMOGLOB) 7.2 % HGB (Below 5.7)
[2017-09-11] MEDS ORDERED: PANTOPRAZOLE SO40 MG PO (14:37)
[2017-09-11] MEDS ORDERED: PRAMIPEXOLE DI0.5 MG PO (14:37)
[2017-09-11] MEDS ORDERED: SINEMET CR 50-1 EACH PO (14:38)
[2017-09-11 15:19] LABS: TROP-I INTERPRETATION NEGATIVE; TROPONIN-I < 0.01 ng/mL (0.0-0.30)
[2017-09-11 16:25] VITALS: BP 140/76
[2017-09-11 19:17] VITALS: BP 137/76
[2017-09-12 00:04] VITALS: BP 185/90
[2017-09-12 07:12] LABS: POINT-OF-CARE METER ID UU13113717
[2017-09-12 07:17] VITALS: BP 160/70
[2017-09-12 08:59] LABS: HEMATOCRIT 36.9 % (36.0-46.0); MCH 31.7 PG (29.0-34.0); MCHC 33.9 G/DL (30.0-36.0); MCV 93.7 FL (83-99); MEAN PLAT.VOLUME 8.2 uM^3 (9.5-12.4); PLATELET COUNT 328 K/uL (156-360); RBC DIS.WIDTH-CV 11.9 % (11.8-14.6); RED BLOOD COUNT 3.94 M/uL (3.80-5.20); WHITE BLOOD COUNT 13.9 K/uL (4.1-10.2)
[2017-09-12 09:52] LABS: ANION GAP 14 MEQ/L (2-14); CHLORIDE 101 MEQ/L (99-109); GFR ESTIMATE (CALCULATED) > 59 mL/min/; GLUCOSE 159 mg/dL (70-99); POTASSIUM 3.5 MEQ/L (3.7-5.4); SAMPLE HEMOLYSIS CHECK 0; SAMPLE ICTERIC CHECK 0; SAMPLE LIPEMIA CHECK 0; SODIUM 135 MEQ/L (136-147); UREA NITROGEN (BUN) 9 mg/dL (9-23)
[2017-09-12 11:17] VITALS: BP 133/76
[2017-09-12 11:20] LABS: POINT-OF-CARE METER ID UU13113717
[2017-09-12 15:11] VITALS: BP 175/70
[2017-09-12 17:45] LABS: POINT-OF-CARE METER ID UU14174225
[2017-09-12 19:38] VITALS: BP 166/82
[2017-09-12 23:54] VITALS: BP 136/62
[2017-09-13 00:40] LABS: POINT-OF-CARE METER ID UU13113717
[2017-09-13 06:42] LABS: POINT-OF-CARE METER ID UU13113717
[2017-09-13 07:49] VITALS: BP 163/78
[2017-09-13 08:20] LABS: HEMATOCRIT 32.5 % (36.0-46.0); MCH 32.8 PG (29.0-34.0); MCHC 34.8 G/DL (30.0-36.0); MCV 94.2 FL (83-99); MEAN PLAT.VOLUME 8.8 uM^3 (9.5-12.4); PLATELET COUNT 279 K/uL (156-360); RBC DIS.WIDTH-SD 41.3 % (39-53); RED BLOOD COUNT 3.45 M/uL (3.80-5.20); WHITE BLOOD COUNT 9.5 K/uL (4.1-10.2)
[2017-09-13 08:51] LABS: ANION GAP 12 MEQ/L (2-14); CHLORIDE 99 MEQ/L (99-109); GFR ESTIMATE (CALCULATED) > 59 mL/min/; GLUCOSE 160 mg/dL (70-99); MAGNESIUM 1.3 mg/dl (1.3-2.7); POTASSIUM 3.6 MEQ/L (3.7-5.4); SAMPLE HEMOLYSIS CHECK 0; SAMPLE ICTERIC CHECK 0; SAMPLE LIPEMIA CHECK 0; SODIUM 133 MEQ/L (136-147); UREA NITROGEN (BUN) 6 mg/dL (9-23)
[2017-09-13 12:18] LABS: POINT-OF-CARE METER ID UU14188625
[2017-09-13 17:35] LABS: POINT-OF-CARE METER ID UU14174225
[2017-09-13] MEDS ORDERED: TRAZODONE HCL50 MG PO (22:26)
[2017-09-14 00:13] VITALS: BP 141/74
[2017-09-14 00:50] LABS: POINT-OF-CARE METER ID UU14188625
[2017-09-14 06:04] LABS: POINT-OF-CARE METER ID UU14188625
[2017-09-14 07:53] VITALS: BP 120/65
[2017-09-14 07:58] LABS: ANION GAP 10 MEQ/L (2-14); CHLORIDE 96 MEQ/L (99-109); GFR ESTIMATE (CALCULATED) > 59 mL/min/; GLUCOSE 149 mg/dL (70-99); POTASSIUM 3.5 MEQ/L (3.7-5.4); SAMPLE HEMOLYSIS CHECK 0; SAMPLE ICTERIC CHECK 0; SAMPLE LIPEMIA CHECK 0; SODIUM 131 MEQ/L (136-147); UREA NITROGEN (BUN) 3 mg/dL (9-23)
[2017-09-14] MEDS ORDERED: ENTACAPONE200 MG PO (08:47)
[2017-09-14] MEDS ORDERED: CEFDINIR300 MG PO (08:49)
== END 2017-09-14 09:50 | disposition home health service (06) | DRG 193 ==
LOC: EME 09:13 → 5SOUTH 14:19 → EDOF 14:19 → ENRESERV 14:20 → EDOF 14:23 → ENRESERV 14:43 → 5SOUTH 16:23
PROVIDERS: Internal Medicine; Nurse Practitioner Family; Physician Assistant Medical
DX: J18.9 Pneumonia, unspecified organism (principal); G93.40 Encephalopathy, unspecified; E87.1 Hypo-osmolality and hyponatremia; E87.6 Hypokalemia; R62.7 Adult failure to thrive; Z68.1 Body mass index [BMI] 19.9 or less, adult; R13.10 Dysphagia, unspecified; R29.810 Facial weakness; R47.01 Aphasia; R47.02 Dysphasia; G20 Parkinson's disease; F02.80 Dementia in other diseases classified elsewhere, unspecified severity, without behavioral disturbance, psychotic disturbance, mood disturbance, and anxiety; F32.9 Major depressive disorder, single episode, unspecified; E11.9 Type 2 diabetes mellitus without complications; E78.00 Pure hypercholesterolemia, unspecified; I10 Essential (primary) hypertension; K21.9 Gastro-esophageal reflux disease without esophagitis; G43.909 Migraine, unspecified, not intractable, without status migrainosus; R00.0 Tachycardia, unspecified; R19.7 Diarrhea, unspecified; F41.9 Anxiety disorder, unspecified; Z66 Do not resuscitate; Z79.84 Long term (current) use of oral hypoglycemic drugs; Z87.891 Personal history of nicotine dependence; Z96.642 Presence of left artificial hip joint; Z99.3 Dependence on wheelchair
CPT/HCPCS: 70450; 70551; 71010; 71020; 80048; 80061; 81003; 82140; 82948; 83036; 83605; 83735; 84100; 84484; 85025; 85027; 85610; 85730; 92526 GN; 92610 GN; 93005; 93306; 93880; 99281; 99285; J0696; J1650; J1815; J3475; J3480; J7030; J7050